=== PATIENT | female | born 1995 | race Caucasian/White ===

== ENCOUNTER 2020-07-17 16:24 | Emergency (ER) | payer BC ==
[~2020-07-17] VITALS: Ht 157.5 cm; Wt 55.5 kg
[2020-07-17 16:35] VITALS: BP 129/82; TEMP 98.2
[2020-07-17] MEDS ORDERED: NORCO 325 MG-51 TAB PO (18:15)
[2020-07-17 19:07] VITALS: PULSE 72
== END 2020-07-17 19:07 | disposition home or self-care (01) ==
LOC: COL.ER 16:24
DX: S52.121A Displaced fracture of head of right radius, initial encounter for closed fracture (principal); W19.XXXA Unspecified fall, initial encounter; Y92.007 Garden or yard of unspecified non-institutional (private) residence as the place of occurrence of the external cause
CPT/HCPCS: J2405; J3010; J7030